=== PATIENT | male | born 1960 | race Caucasian/White ===

== ENCOUNTER → 2016-12-12 | Outpatient (CLI) | payer OTHER ==
--- NOTE | 2016-12-15 09:57 | MRI ---
HISTORY: LEFT FOOT PAIN. EXAM: NON CONTRAST MRI EXAM OF THE LEFT FOOT. TECHNIQUE: Multisequence and multiplanar T1 and T2 weighted sequences of the left foot were obtained without the administration of IV paramagnetic contrast at 1.5 Cesia. COMPARISON: No recent comparisons. FINDINGS: There is a low-grade, chronic, strain of the deep fibers of the deltoid ligament. The lateral ligamen ts are intact. There is mild tibia fibular joint DJD observed. The Achilles tendon is intact. There i s diffuse peroneal tendinosis & mild tenosynovitis observed without evidence for a high-grade peronea l tendon tear or subluxation. 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 This prob ably accounts for the patient's medial foot pain. There is also moderate 1st MTP joint DJD with bone marrow edema in the 1st metatarsal head which could also account for foot pain. There is no osteochon dral lesion in the talar dome. There is trace ankle joint fluid observed. No other bone marrow edema is seen. No stress fracture is appreciated, and there no plantar muscle atrophy or evidence for bursi tis seen. No aggressive bone marrow edema or stress fracture is evident. No infiltrating soft tissue masses are observed. No other MSK abnormalities are identified on this examination. 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 This probably accounts for the patient's medial fo ot pain. Please correlate clinically. Diffuse peroneal tendinosis & mild perineal tenosynovitis without evidence for a high-grade peroneal tendon tear or subluxation. Low grade deltoid ligament strain. 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 Reported By:
== END | disposition home or self-care (01) | DRG 556 ==
LOC: RAD 13:54
PROVIDERS: ATTEND Orthopaedic Surgery Foot and Ankle Surgery
DX: M25.572 Pain in left ankle and joints of left foot (principal); R60.1 Generalized edema; M77.52 Other enthesopathy of left foot and ankle; M19.072 Primary osteoarthritis, left ankle and foot; M94.272 Chondromalacia, left ankle and joints of left foot
CPT/HCPCS: 73721